=== PATIENT | female | born 1970 | race Caucasian/White ===

== ENCOUNTER 2016-09-23 18:30 | Emergency (ER) | payer OTHER ==
[~2016-09-23] VITALS: Ht 152.4 cm; Wt 67.0 kg
[~2016-09-23 18:30] MED LIST: DOCU-144 PO; FAMO-18 PO; HYDR-3498 PO
[2016-09-23 18:33] VITALS: Ht 152.4 cm; Wt 67.0 kg
[2016-09-23] MEDS ORDERED: morphine 4 MG/ML VIAL IV STA (18:59)
[2016-09-23] MEDS ORDERED: ONDANSETRON 4 MG INJ IV STA (18:59)
[2016-09-23] MEDS ORDERED: SOD CHLORIDE 0.9% 1,000 ML IV STA (18:59)
[2016-09-23 19:17] LABS: ADD SCAN DIFF NO
[2016-09-23 19:19] LABS: BASOPHILS % 0.4 % (0.0-2.0); EOSINOPHILS # 0.1 10^3/ul (0.0-0.5); EOSINOPHILS % 0.5 % (0.0-7.0); HEMATOCRIT 31.3 % (37.0-47.0); LYMPHOCYTES # 2.1 10^3/ul (0.8-2.9); LYMPHOCYTES % 19.8 % (15.0-51.0); MEAN CORPUSCULAR HGB CONC 31.9 g/dl (32.0-37.0); MEAN PLATELET VOLUME 9.4 fl (7.4-10.4); MONOCYTE # 0.9 10^3/ul (0.3-0.9); MONOCYTES % 8.6 % (0.0-11.0); NEUTROPHIL # 7.4 10^3/ul (1.6-7.5); NEUTROPHILS % 70.4 % (39.0-77.0); PLATELET COUNT 427 10^3/UL (140-415); RED BLOOD COUNT 4.35 10^6/ul (4.20-5.40); RED CELL DISTRIBUTION WIDTH 17.1 % (11.5-14.5); WHITE BLOOD COUNT 10.5 10^3/ul (4.8-10.8)
[2016-09-23 19:21] LABS: ADD UMIC YES; UR BILIRUBIN (Dip) NEGATIVE (NEGATIVE); UR BLOOD (Dip) TRACE (NEGATIVE); UR CLARITY CLOUDY (CLEAR); UR COLOR LT. YELLOW (YELLOW); UR GLUCOSE (Dip) NEGATIVE (NEGATIVE); UR KETONES (Dip) 3+ (NEGATIVE); UR LEUKOCYTE ESTERASE (Dip) 1+ (NEGATIVE); UR NITRITE (Dip) NEGATIVE (NEGATIVE); UR TOTAL PROTEIN (Dip) TRACE (NEGATIVE); UR UROBILINOGEN (Dip) 4.0 E.U./dL (0.1-1.0)
[2016-09-23 19:44] LABS: UR MUCUS MODERATE; UR SQUAMOUS EPITHELIAL CELL MANY
[2016-09-23 19:45] LABS: URINE RBCS 0-2 /HPF (0)
[2016-09-23 19:47] LABS: ALBUMIN 4.8 g/dl (3.3-4.9); ALBUMIN/GLOBULIN RATIO 1.02; BILIRUBIN,INDIRECT 1.1 mg/dl (0-1.1); BILIRUBIN,TOTAL 1.1 mg/dl (0.2-1.3); CALCIUM 9.8 mg/dl (8.4-10.2); CREATININE 0.57 mg/dl (0.44-1.00); POTASSIUM 3.6 mmol/L (3.5-5.1); TOTAL PROTEIN 9.5 g/dl (6.1-8.1)
--- NOTE | 2016-09-23 20:47 | RADRPT ---
PROCEDURE: CT Abdomen and Pelvis without contrast. CLINICAL INDICATION: Pain. TECHNIQUE: CT scan of the abdomen and pelvis was performed on a multidetector slice CT scanner. No intravenous contrast material was utilized. Sagittal and coronal reformatted images were obtained fr om the axial source images. Images were reviewed on a high-resolution PACS workstation. Exam CTDlvol = 10 mGy and DLP = 626 Gy-cm. One of the following 3 dose reduction techniques were used: Automated exposure control; adjustment of the mA and/or kV according to patient size; or use of iterative rec onstruction technique. COMPARISON: KUB 09/23/2016. FINDINGS: There is no obstruction or ileus. The appendix is well visualized and normal in size. There is no evidence for diverticulitis. There is no free fluid. The liver is top normal size at 17 cm length.. No intrahepatic lesions are identified. There is 13 m m calcified gallstone within the gallbladder. The gallbladder is otherwise normal in appearance. The re is no definite biliary ductal dilation. Pancreas is normal in appearance. The spleen is unremarka ble. There are no adrenal masses. The aorta is normal caliber. There is slight left perinephric and periureteral stranding. Kidneys are otherwise normal in appear ance without hydronephrosis, mass or calculus.. Ureters are of normal caliber and without evidence f or an obstructing calculus The urinary bladder is partially contracted with nonspecific wall thicken ing.. The uterus and ovaries are grossly unremarkable. Limited evaluation of the lung bases is unremarkable. The bones are unremarkable. IMPRESSION: 1. Mild left perinephric and periureteral stranding without obstructing calculus or dilatation. Con siderations include a urinary tract infection/pyelonephritis verses passed calculus. Contracted uri nary bladder with nonspecific wall thickening. 2. Cholelithiasis. No CT evidence for acute cholecystitis or biliary obstruction. 3. No evidence for appendicitis. 4. No evidence for diverticulitis. RPTAT: [facility]VK .Alex Brock MD, Date Time Electronically viewed and signed by .Alex Brock MD, on 09/23/2016 20:47 .K/
[2016-09-23] MEDS ORDERED: KETOROLAC 30 MG INJ IV STA (20:52)
[2016-09-23] MEDS ORDERED: CEFTRIAXONE 1 GM/50 ML (PMX) 50 ML IVPB ONE (21:00)
[2016-09-23] MEDS ORDERED: morphine 2 MG INJ IV ONE (21:00)
[2016-09-23 21:09] VITALS: BP 119/58; PULSE 70; RESP 17
[2016-09-23] MEDS ORDERED: HYDR-906 PO (21:13)
[2016-09-23] MEDS ORDERED: IBUP-1542 PO (21:14)
[2016-09-23] MEDS ORDERED: CIPR500T4 PO (21:16)
[2016-09-23] MEDS ORDERED: ONDA-43 PO (21:17)
--- NOTE | 2016-09-23 21:49 | ERD ---
ER Documentation Chief Complaint Date/Time DATE: 09/23/16 TIME: 21:45 Chief Complaint AP and vomting for 3 days HPI This is a 46-year-old female presents to the ER with left upper quadrant pain that radiates to her epigastric area. Patient admits to nausea, vomiting and fever. Patient denies any diarrhea. Vomiting is nonbilious nonbloody. Pain is severe and is worsening. Is described as an achy pain. Patient denies any recent travel or sick contacts at home. She denies any urinary frequency or dysuria. She denies any back pain. ROS 12 point review of systems was done, all negative except per HPI. Medications Home Meds Active Scripts Ondansetron Hcl* (Zofran*) 4 Mg Tab, 4 MG PO Q4H Y for NAUSEA AND OR VOMITING, # 15 TAB Prov:NIGEL,OTONIEL C 09/23/16 Ciprofloxacin Hcl* (Ciprofloxacin Hcl*) 500 Mg Tablet, 500 MG PO BID, #14 TAB Prov:OTONIEL MANNING 09/23/16 Ibuprofen* (Motrin*) 600 Mg Tab, 600 MG PO Q6, #30 TAB Prov:FELIZ MANNINGSANDEEP Dominguez 09/23/16 Hydrocodone/Acetaminophen (Struthers 5-325 Tablet) 1 Each Tablet, 1 TAB PO Q6H Y for PAIN, #20 TAB Prov:OTONIEL MANNING Angelica 09/23/16 Hydrocodone Bit-Acetaminophen* (Struthers*) 5-325 Mg Tab, 1 TAB PO Q6 Y for PAIN, # 5 TAB Prov:NATE BENDER 11/13/14 Docusate Sodium* (Colace*) 100 Mg Capsule, 100 MG PO TID, #30 Prov:NATE BENDER 11/13/14 Reported Medications Famotidine* (Pepcid*) 20 Mg Tablet, 20 MG PO BID, TAB 11/13/14 Allergies Allergies: Coded Allergies: No Known Allergy (Unverified , 11/13/14) PMhx/Soc Medical and Surgical Hx: pt denies Medical Hx, pt denies Surgical Hx History of Surgery: No Anesthesia Reaction: No Hx Neurological Disorder: No Hx Respiratory Disorders: No Hx Cardiac Disorders: No Hx Psychiatric Problems: No Hx Miscellaneous Medical Probl: Yes (anemia) Hx Alcohol Use: No Hx Substance Use: No Hx Tobacco Use: No Smoking Status: Never smoker Physical Exam Vitals Vital Signs Date Time Temp Pulse Resp B/P Pulse Ox O2 Delivery O2 Flow Rate FiO2 09/23/16 21:09 70 17 119/58 100 Room Air 09/23/16 18:33 100.8 90 16 145/71 98 Physical Exam GENERAL: The patient is well developed and appropriate for usual state of health , in no apparent distress. HEENT: Atraumatic. CHEST: Clear to auscultation bilaterally. There are no rales, wheezes or rhonchi. HEART: Regular rate and rhythm. No murmurs, clicks, rubs or gallops. ABDOMEN: Soft and nondistended, tender to palpation in the left upper quadrant and in the epigastric area. Good bowel sounds. No rebound or guarding. No gross peritonitis. No gross organomegaly or masses. No Pickard sign or McBurney point tenderness. BACK: No midline or flank tenderness. NEURO: Alert and oriented. Result Diagram: 09/23/16190409/23/161904 Results 24 hrs Laboratory Tests Test 09/23/16 19:05 White Blood Count 10.510^3/ul Red Blood Count 4.3510^6/ul Hemoglobin 10.0g/dl Hematocrit 31.3% Mean Corpuscular Volume 72.0fl Mean Corpuscular Hemoglobin 23.0pg Mean Corpuscular Hemoglobin Concent 31.9g/dl Red Cell Distribution Width 17.1% Platelet Count 28293^3/UL Mean Platelet Volume 9.4fl Neutrophils % 70.4% Lymphocytes % 19.8% Monocytes % 8.6% Eosinophils % 0.5% Basophils % 0.4% Nucleated Red Blood Cells % 0.0/100WBC Neutrophils # 7.410^3/ul Lymphocytes # 2.110^3/ul Monocytes # 0.910^3/ul Eosinophils # 0.110^3/ul Basophils # 0.010^3/ul Nucleated Red Blood Cells # 0.010^3/ul Urine Color LT. YELLOW Urine Clarity CLOUDY Urine pH 6.0 Urine Specific [place] 1.010 Urine Ketones 3+ Urine Nitrite NEGATIVE Urine Bilirubin NEGATIVE Urine Urobilinogen 4.0 E.U./dL Urine Leukocyte Esterase 1+ Urine Microscopic RBC 0-2/HPF Urine Microscopic WBC 10-25/HPF Urine Squamous Epithelial Cells MANY Urine Mucus MODERATE Urine Hemoglobin TRACE Urine Glucose NEGATIVE% Urine Total Protein TRACE Sodium Level 139mmol/L Potassium Level 3.6mmol/L Chloride Level 100mmol/L Carbon Dioxide Level 26mmol/L Anion Gap 17 Blood Urea Nitrogen 7mg/dl Creatinine 0.57mg/dl Glucose Level 104mg/dl Calcium Level 9.8mg/dl Total Bilirubin 1.1mg/dl Direct Bilirubin 0.00mg/dl Indirect Bilirubin 1.1mg/dl Aspartate Amino Transf (AST/SGOT) 24IU/L Alanine Aminotransferase (ALT/SGPT) 25IU/L Alkaline Phosphatase 94IU/L Total Protein 9.5g/dl Albumin 4.8g/dl Globulin 4.70g/dl Albumin/Globulin Ratio 1.02 Lipase 52U/L Current Medications Medications (Trade) Dose Ordered Sig/Abdias Route PRN Reason Start Time Stop Time Status Last Admin Dose Admin Sodium Chloride (NS) 1,000 ml @ 1,000 mls/hr Q1H STAT IV 09/23/16 18:59 09/23/16 19:58 DC 09/23/16 19:12 Morphine Sulfate (morphine) 4 mg ONCE STAT IV 09/23/16 18:59 09/23/16 19:01 DC 09/23/16 19:11 Ondansetron HCl (Zofran Inj) 4 mg ONCE STAT IV 09/23/16 18:59 09/23/16 19:01 DC 09/23/16 19:11 Morphine Sulfate 2 mg 2 mg ONCE ONCE IV 09/23/16 21:00 09/23/16 21:01 DC 09/23/16 21:08 Ceftriaxone Sodium (Rocephin) 50 ml @ 100 mls/hr ONCE ONCE IVPB 09/23/16 21:00 09/23/16 21:29 DC 09/23/16 21:09 Ketorolac Tromethamine (Toradol) 30 mg ONCE STAT IV 09/23/16 20:52 09/23/16 20:53 DC 09/23/16 21:08 Procedures/MDM Differential Diagnosis: GERD, gastritis, peptic ulcer disease, pancreatitis, cholecystitis, choledocholithiasis, biliary colic, cholangitis, [id number] , ACS/GA, Pnuemonia. This is a 46-year-old female presents to the ER with left upper quadrant pain that started 3 days ago. Patient does have gallstones and possible urinary tract infection versus pyelonephritis. Patient was given a gram of Rocephin here in the ER without any complications. She will be sent home with Cipro. Suspicion for cholecystitis is low, patient does not have any increase in her white blood cells there is no evidence of transaminitis or elevation in bilirubin or lipase. Patient's pain was controlled in the ER. She will be sent home with Struthers and ibuprofen and Zofran. She is to follow-up with her primary care doctor within 1-2 days and requesting authorization to see a general surgeon. Patient should return to ER sooner if symptoms worsen. My medical decision making shared with the patient she understands and agrees with plan. Departure Diagnosis: Primary Impression: Gallstones Additional Impression: UTI (urinary tract infection) Condition: Stable Patient Instructions: Understanding Urinary Tract Infections (UTIs), Gallstones Additional Instructions: Llame al doctor MAANA y mayi tremayne KENTRELL PARA DENTRO DE 1-2 RIDLEY.Dgale a la secretaria que nosotros le instruimos hacer esta kentrell.Avise o llame si seymour condicin se empeora antes de la kentrell. Regresa aqui si peor o no mejor. OTONIEL MANNING Sep 23, 2016 21:49
== END 2016-09-23 21:59 | disposition home or self-care (01) ==
LOC: FTE 18:30
DX: K80.20 Calculus of gallbladder without cholecystitis without obstruction (principal); N39.0 Urinary tract infection, site not specified; R11.10 Vomiting, unspecified
CPT/HCPCS: 74176; 80053; 81001; 83690; 85025; J0696; J1885; J2270; J2405; J7030; 36415; 96374; 96375; 96376